=== PATIENT | male | born 1970 | race Caucasian/White ===

== ENCOUNTER 2021-01-04 00:04 | Emergency (ER) | payer SELFPAY ==
[2021-01-04 00:04] VITALS: BP 131/88; PULSE 90; RESP 18; TEMP 36.7; O2SAT 99; BMI 23.1
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
[2021-01-04] MEDS: fluorescein 1 mg Strip EYE-RIGHT (00:18)
[2021-01-04] MEDS: tetracaine 0.5% Op Soln 4 mL Btl 1 DROP EYE-RIGHT (00:18)
[2021-01-04] MEDS: eye irrigation 30 mL Btl EYE-RIGHT (00:18)
[2021-01-04] MEDS: neomycin-poly-dex Op 5 mL Btl 2 DROP EYE-RIGHT (01:08)
[2021-01-04 01:18] VITALS: RESP 18
== END 2021-01-04 01:10 | disposition home or self-care (01) ==
PROVIDERS: Emergency Provider Nurse Practitioner Family
DX: S05.01XA Injury of conjunctiva and corneal abrasion without foreign body, right eye, initial encounter (principal); W22.8XXA Striking against or struck by other objects, initial encounter
CPT/HCPCS: 99283